=== PATIENT | female | born 1970 | race Caucasian/White ===

== ENCOUNTER 2017-12-24 08:11 | Emergency (ER) | payer MEDICAID ==
[~2017-12-24] VITALS: Ht 152.4 cm; Wt 75.0 kg
[2017-12-24] MEDS ORDERED: KETOROLAC 60MG/2ML VIAL IM ONE (10:45)
[2017-12-24 14:10] VITALS: BP 120/80
== END 2017-12-24 14:12 | disposition home or self-care (01) ==
LOC: ER 08:21
DX: M79.672 Pain in left foot (principal); M25.572 Pain in left ankle and joints of left foot; I10 Essential (primary) hypertension
CPT/HCPCS: 73600; 73620; 81025; 96372; 99284; J1885

== ENCOUNTER 2019-07-05 10:21 | Emergency (ER) | payer MEDICAID ==
[~2019-07-05] VITALS: Ht 160 cm; Wt 77.0 kg
[2019-07-05 11:14] VITALS: BP 151/88
[2019-07-05] MEDS ORDERED: KETOROLAC 60MG/2ML VIAL IM ONE (11:15)
== END 2019-07-05 12:12 | disposition home or self-care (01) ==
LOC: ER 10:21
DX: M77.31 Calcaneal spur, right foot (principal); I10 Essential (primary) hypertension; M19.90 Unspecified osteoarthritis, unspecified site
CPT/HCPCS: 73610; 73650; 96372; 99283; J1885

== ENCOUNTER 2022-11-19 09:46 | Emergency (ER) | payer MEDICAID ==
[~2022-11-19] VITALS: Ht 154.9 cm; Wt 79.0 kg
[2022-11-19 11:05] VITALS: BP 158/77
[2022-11-19] MEDS ORDERED: IBUP-2028 MT (12:21)
== END 2022-11-19 12:34 | disposition home or self-care (01) ==
LOC: ER 09:46
DX: M79.671 Pain in right foot (principal); E78.00 Pure hypercholesterolemia, unspecified; Z98.890 Other specified postprocedural states
CPT/HCPCS: 73630; 99283